=== PATIENT | male | born 1985 | race Caucasian/White ===

== ENCOUNTER 2018-04-01 09:22 | Emergency (ER) | payer OTHER ==
[2018-04-01 09:25] VITALS: BP 138/95
--- NOTE | 2018-04-01 09:44 | EDPHY ---
H & P Time Seen by Provider: 04/01/18 09:37 HPI/ROS: CHIEF COMPLAINT: Sore throat x1 day HISTORY OF PRESENT ILLNESS: 32-year-old immunocompetent male complaining of sore throat, tonsillar enlargement exudate for the past 1 day. No URI symptoms. No cough. No nuchal rigidity. No headache. No nausea or vomiting. No rash. No abdominal pain. 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 Appears to be in no acute distress. 2) HEAD: Normocephalic, atraumatic 3) HEENT: Pupils equal, round, reactive to light bilaterally. Sclera anicteric. Nasopharynx, oropharynx, clear,Moist Mucous membranes, tonsils are bilaterally, symmetric enlarged with white exudate. No trismus no drooling. Ears bilaterally with normal tympanic membranes. 4) NECK: Full range of motion, no meningeal signs. No adenopathy. No crepitus 5) LUNGS: Clear auscultation bilaterally, no wheezes, no rhonchi, no retractions. 6) HEART: Regular rate and rhythm, no murmur, no heave, no gallop. 7) ABDOMEN: No guarding, no rebound, no focal tenderness, negative McBurney's, negative Kelly's, negative Rovsing's, negative peritoneal sign, no left upper quadrant pain. No splenomegaly 8) MUSCULOSKELETAL: Moving all extremities, no focal areas of tenderness, no obvious trauma. No peripheral edema or discoloration. 9) BACK: No CVA tenderness, no midline vertebral tenderness, no fluctuance, no step-off, no obvious trauma, no visual or palpable abnormality. 10) SKIN: No rash, no petechiae. 11) Psychiatric: Patient is oriented X 3, there is no agitation. DIFFERENTIAL DIAGNOSIS: In no particular order, my differential diagnosis includes, but is not limited to, strep pharyngitis, viral pharyngitis, peritonsillar abscess, retropharyngeal abscess or plegmon, mononucleosis, meningitis, Lemierre syndrome. Smoking Status: Current every day smoker Constitutional: Initial Vital Signs Temperature (C) 37.0 C 04/01/18 09:24 Heart Rate 115 H 04/01/18 09:24 Respiratory Rate 16 04/01/18 09:24 Blood Pressure 138/95 H 04/01/18 09:24 O2 Sat (%) 95 04/01/18 09:24 O2 Delivery Mode Room Air Allergies/Adverse Reactions: No Known Allergies Allergy (Unverified 09/26/17 19:53) Home Medications: Medication Instructions Recorded Amoxicillin/Clavulanate Pot 875 mg PO BID #14 tab 04/01/18 [Augmentin 875 mg tab] methylPREDNISolone [Medrol Dose 4 mg PO DAILY #1 ea 04/01/18 Lavelle] MDM/Departure - MDM ED Course/Re-evaluation: High clinical suspicion for strep pharyngitis. Recommended empiric treatment. Doubt Lemierre syndrome, peritonsillar abscess, retropharyngeal abscess or phlegmon, meningitis. Plan will be Augmentin, Medrol Dosepak. I Inquired about history of mental health illness which he she denies. Given usual customary pharyngitis and steroid precautions instructions. Care of patient under supervision of secondary supervising physician Dr Sanchez . - Depart Disposition: Home, Routine, Self-Care Clinical Impression: Strep pharyngitis Condition: Good Instructions: Strep Throat (ED) Additional Instructions: Return to the ER immediately if you cannot swallow, have drooling, fevers, neck stiffness, cannot open your jaw, or any other symptoms that concern you. Prescriptions: Amoxicillin/Clavulanate Pot [Augmentin 875 mg tab] 875 mg PO BID #14 tab methylPREDNISolone [Medrol Dose Lavelle] 4 mg PO DAILY #1 ea Referrals: Sayra Rehman, PAC [Primary Care Provider] - 2-3 days, call for appt.
== END 2018-04-01 09:54 | disposition home or self-care (01) ==
DX: J02.0 Streptococcal pharyngitis (principal)